=== PATIENT | female | born 1990 | race Two or more races ===

== ENCOUNTER 2023-07-10 11:10 | Outpatient (CLI) | payer OTHER | END 2023-07-10 11:18 | disposition home or self-care (01) | LOC: RAD 11:10 | DX: S82.831A Other fracture of upper and lower end of right fibula, initial encounter for closed fracture (principal) ==

== ENCOUNTER 2023-08-14 10:41 | Outpatient (CLI) | payer OTHER | END 2023-08-14 10:48 | disposition home or self-care (01) | LOC: RAD 10:41 | DX: S82.831A Other fracture of upper and lower end of right fibula, initial encounter for closed fracture (principal) ==